=== PATIENT | male | born 2005 | race Two or more races ===

== ENCOUNTER 2025-02-13 12:02 | Emergency (ER) | payer OTHER ==
[~2025-02-13] VITALS: Ht 177.8 cm; Wt 107.4 kg
[2025-02-13 12:14] VITALS: BP 121/79; PULSE 114; RESP 19; TEMP 98; O2SAT 99
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
--- NOTE | 2025-02-13 14:00 | DVH ---
EXAM: CT CERVICAL WITHOUT CONTRAST INDICATION: r/o fracture EXAM DATE: 02/13/2025 01:30 PM COMPARISON: None TECHNIQUE: Multiple axial CT images of the cervical spine were obtained using bone algorithm. Axial a nd coronal reformatting was done. Bone and soft tissue windows were reviewed. Radiation Dose Information: CT Dose: CTDI volume is 29.74 mGy. Dose-length product is 723.94 mGy*cm Findings: There is no evidence of an acute fracture or spondylolisthesis. The vertebral body heights are well-m aintained. The craniocervical junction and dens are intact. No evidence of degenerative disc disease. No neuroforaminal narrowing. No spinal canal stenosis. There is flattening of the cervical lordosis. The thyroid gland is unremarkable. The lung apices demonstrate no acute abnormality. The paraspinal a nd neck soft tissues appear within normal limits. C2-3: Normal C3-4: Normal C4-5: Normal C5-6: Normal C6-7: Normal C7-T1: Normal Impression: 1. No evidence of an acute fracture. 2. Straightening of the cervical lordosis which may be positional versus muscle spasm.
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
[2025-02-13] MEDS ORDERED: METH-1181 PO (14:09)
[2025-02-13] MEDS ORDERED: IBUP-1454 PO (14:09)
== END 2025-02-13 14:15 | disposition home or self-care (01) ==
LOC: ER 12:11
DX: S60.512A Abrasion of left hand, initial encounter (principal); R51.9 Headache, unspecified; M54.2 Cervicalgia; V89.2XXA Person injured in unspecified motor-vehicle accident, traffic, initial encounter; Y93.I9 Activity, other involving external motion; Y92.488 Other paved roadways as the place of occurrence of the external cause; Y99.8 Other external cause status
CPT/HCPCS: 70450; 72125